=== PATIENT | female | born 1975 | race Caucasian/White ===

== ENCOUNTER 2017-04-30 15:11 | Emergency (ER) | payer OTHER ==
[~2017-04-30] VITALS: Ht 170.2 cm; Wt 74.1 kg
[2017-04-30 20:10] VITALS: BP 131/81
== END 2017-04-30 20:10 | disposition home or self-care (01) ==
LOC: ED 15:11
DX: M54.12 Radiculopathy, cervical region (principal)
CPT/HCPCS: J1885